=== PATIENT | female | born 1985 | race Caucasian/White ===

== ENCOUNTER 2018-09-30 18:39 | Emergency (ER) | payer MEDICAID ==
[~2018-09-30] VITALS: Ht 170.2 cm; Wt 80.0 kg
[2018-09-30 19:01] VITALS: Ht 170.2 cm; Wt 80.0 kg
[2018-09-30 21:20] VITALS: BP 135/82
== END 2018-09-30 21:20 | disposition home or self-care (01) ==
LOC: ED 18:39
DX: S80.212A Abrasion, left knee, initial encounter (principal); S90.812A Abrasion, left foot, initial encounter; E11.9 Type 2 diabetes mellitus without complications; W05.2XXA Fall from non-moving motorized mobility scooter, initial encounter; Y93.I9 Activity, other involving external motion; Y92.413 State road as the place of occurrence of the external cause; Y99.8 Other external cause status
CPT/HCPCS: 90715

== ENCOUNTER 2019-04-30 16:46 | Emergency (ER) | payer MEDICAID ==
[~2019-04-30] VITALS: Ht 152.4 cm; Wt 81.2 kg
[2019-04-30 16:55] VITALS: BP 137/85; Ht 152.4 cm; Wt 81.2 kg
== END 2019-04-30 17:37 | disposition home or self-care (01) ==
LOC: ED 16:46
DX: H57.89 Other specified disorders of eye and adnexa (principal); E11.9 Type 2 diabetes mellitus without complications
CPT/HCPCS: 82962